=== PATIENT | male | born 1990 | race Caucasian/White ===

== ENCOUNTER 2016-08-11 18:41 | Emergency (ER) | payer OTHER ==
[2016-08-11] MEDS ORDERED: ONDANSETRON 4 MG/2 ML VIAL IVPB STA (18:50)
[2016-08-11] MEDS ORDERED: SODIUM CHLORIDE 1,000 ML IV ONE (18:50)
--- NOTE | 2016-08-11 18:50 | PDOC ---
History of Present Illness <Cecille Faria - Last Filed: 08/12/16 00:30> - History of Present Illness Initial Comments: 08/11/16 20:07 Patient is a 26 year old with significant medical hx of severe lumbar radiculopathy (epidural steroid injections for pain management) who is presenting to the ED after being found altered at home by family members today. The patient was found unresponsive at home and EMS was called. Upon arrival to the ED, the patient initially was unresponsive until he was placed in a bed and began wretching. The patient reporedly drank two 24 ounce beers today. Per family, the patient was complaining of abdominal pain and headache prior being found altered. Patient has a hx of oxycodone withdrawal for back pain in 2013. Social Hx: Current every day smoker. Alcohol use. PMD: Jun Deutsch MD <Pascale Pavon - Last Filed: 08/12/16 00:55> - General Stated Complaint: WITHDRAWAL Time Seen by Provider: 08/11/16 18:48 Past History - Past Medical History Anemia: No Asthma: No Cancer: No Cardiac Disorders: No CVA: No COPD: No CHF: No Dementia: No Diabetes: No GI Disorders: Yes (GERD (PAST HISTORY)) Disorders: No HTN: No Hypercholesterolemia: No Liver Disease: No Seizures: No Thyroid Disease: No - Surgical History Abdominal Surgery: No Appendectomy: No Cardiac Surgery: No Cholecystectomy: No Gastric Stapling: No GI Surgery: No Lung Surgery: No Neurologic Surgery: No Orthopedic Surgery: No - Immunization History Immunization Up to Date: Yes - Psycho/Social/Smoking Cessation Hx Anxiety: No Suicidal Ideation: No Smoking History: Former smoker Have you smoked in the past 12 months: No Number of Cigarettes Smoked Daily: 1 If you are a former smoker, when did you quit?: 3YRS AGO 'Breaking Loose' booklet given: 04/11/13 Hx Alcohol Use: Yes (SOCIALLY) Drug/Substance Use Hx: No Substance Use Type: None Hx Substance Use Treatment: No <Cecille Faria - Last Filed: 08/12/16 00:30> <Pascale Pavon - Last Filed: 08/12/16 00:55> - Past Medical History Allergies/Adverse Reactions: Allergies Allergy/AdvReac Type Severity Reaction Status Date / Time oxycodone HCl Allergy "chest Verified 08/11/16 19:03 [From OxyContin] pain" can't take it. Home Medications: Ambulatory Orders Oxycodone HCl [Roxicodone] 15 mg PO BID 08/11/16 Review of Systems - Review of Systems Comments:: 08/11/16 20:16 CONSTITUTIONAL: Absent: fever, chills, diaphoresis, generalized weakness, malaise, loss of appetite HEENT: Absent: rhinorrhea, nasal congestion, throat pain, throat swelling, difficulty swallowing, mouth swelling, ear pain, eye pain, visual changes CARDIOVASCULAR: Absent: chest pain, syncope, palpitations, irregular heart rate, lightheadedness , peripheral edema RESPIRATORY: Absent: cough, shortness of breath, dyspnea with exertion, orthopnea, wheezing, stridor, hemoptysis GASTROINTESTINAL: Present: abdominal pain, nausea, vomiting Absent: abdominal distension, diarrhea, constipation, melena, hematochezia GENITOURINARY: Absent: dysuria, frequency, urgency, hesitancy, hematuria, flank pain, genital pain MUSCULOSKELETAL: Absent: myalgia, arthralgia, joint swelling SKIN: Absent: rash, itching, pallor HEMATOLOGIC/IMMUNOLOGIC: Absent: easy bleeding, easy bruising, lymphadenopathy, frequent infections ENDOCRINE: Absent: unexplained weight gain, unexplained weight loss, heat intolerance, cold intolerance NEUROLOGIC: Present: headache Absent: focal weakness or paresthesia, dizziness, unsteady gait, seizure, mental status changes, bladder or bowel incontinence. PSYCHIATRIC: Absent: anxiety, depression, suicidal or homicidal ideation, hallucinations <Pascale Pavon - Last Filed: 08/12/16 00:55> *Physical Exam - Vital Signs Last Vital Signs Temp Pulse Resp BP Pulse Ox 97.8 F 96 H 22 141/94 100 08/11/16 18:52 08/11/16 18:52 08/11/16 18:52 08/11/16 18:52 08/11/16 18:52 - Physical Exam Comments: 08/12/16 00:49 GENERAL: Well developed, well nourished. Awake and alert. Patient in severe distress with vomiting upon arrival. Several hours later, upon second evaluation the patient conversant and is in no distress. HEENT: Normocephalic, atraumatic. PERRLA, EOMI. Injected conjunctivae. No conjunctival pallor. Sclera are non-icteric. Moist mucous membranes. Oropharynx is clear. NECK: Supple. Full ROM. No JVD. Carotid pulses 2+ and symmetric, without bruits. No thyromegaly. No lymphadenopathy. CARDIOVASCULAR: Regular rate and rhythm. No murmurs, rubs, or gallops. Distal pulses are 2+ and symmetric. PULMONARY: No evidence of respiratory distress. Lungs clear to auscultation bilaterally. No wheezing, rales or rhonchi. ABDOMINAL: Soft. Non-tender. Non-distended. No rebound or guarding. No organomegaly. Normoactive bowel sounds. MUSCULOSKELETAL: Normal range of motion at all joints. No bony deformities or tenderness. No CVA tenderness. EXTREMITIES: No cyanosis. No clubbing. No edema. No calf tenderness. SKIN: Warm and dry. Normal capillary refill. No rashes. No jaundice. NEUROLOGICAL: Alert, awake, appropriate, conversant. Ambulatory. Moving all extremities purposefully. Cranial nerves 2-12 intact. Normal speech. Toes are down-going bilaterally. Gait is normal without ataxia. <Pascale Pavon - Last Filed: 08/12/16 00:55> Heart Score/ECG Review #1 08/12/16 00:35 Normal sinus rhythm at 92 bpm Early repolarization Normal ECG <Pascale Pavon - Last Filed: 08/12/16 00:55> ED Treatment Course - LABORATORY CBC & Chemistry Diagram: 08/11/16 19:15 08/11/16 19:15 <Cecille Faria - Last Filed: 08/12/16 00:30> - LABORATORY CBC & Chemistry Diagram: 08/11/16 19:15 08/11/16 19:15 - ADDITIONAL ORDERS Additional order review: Laboratory Results 08/11/16 08/11/16 19:15 19:15 INR 1.10 Sodium 144 Potassium 4.7 Chloride 105 Carbon Dioxide 27 Anion Gap 12 BUN 4 L D Creatinine 1.2 Creat Clearance w eGFR > 60 Random Glucose 114 H D Calcium 8.5 Total Bilirubin 0.4 AST 37 ALT 92 H Alkaline Phosphatase 106 Creatine Kinase 286 Troponin I < 0.02 Total Protein 8.3 H Albumin 4.7 08/11/16 19:15 RBC 5.10 MCV 89.1 MCHC 33.8 RDW 12.9 MPV 9.4 Neutrophils % 65.8 Lymphocytes % 27.6 Monocytes % 5.8 Eosinophils % 0.5 Basophils % 0.3 - RADIOLOGY Radiograph Interpretation: 08/11/16 20:[address] Impression: No significant interval change or acute intracranial pathology is identified. Reported By: Adina Marquis MD 08/11/16 20:51 Chest X-Ray Impression: Unremarkable examination. Reported By: Adina Marquis MD - Medications Given in the ED: ED Medications Discontinued Medications Generic Name Dose Route Start Last Admin Trade Name Freq PRN Reason Stop Dose Admin Sodium Chloride 1,000 mls @ 1,000 mls/hr 08/11/16 18:50 08/11/16 19:21 Normal Saline - IV 08/11/16 19:49 1,000 mls/hr .Q1H ONE Administration Ondansetron HCl 4 mg 08/11/16 18:50 08/11/16 19:22 Zofran Injection IVPB 08/11/16 18:51 4 mg ONCE STA Administration Ondansetron HCl 8 mg 08/11/16 19:04 08/11/16 19:08 Zofran Odt - SL 08/11/16 19:05 8 mg ONCE ONE Administration <Pascale Pavon - Last Filed: 08/12/16 00:55> Medical Decision Making - Medical Decision Making 08/12/16 00:24 26-year-old male was brought in by ambulance after being found unresponsive at home. Family states he had been drinking earlier in the day. Past medical history-he sustained herniated disc while working at [employer] and is on disability CAT scan of the head was negative for any acute intracranial pathology Chemistries CBC is unremarkable Alcohol level was 224 Patient received IV fluids and is currently alert and conversant. 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 <Pascale Pavon - Last Filed: 08/12/16 00:55> Diagnosis at time of Disposition: Nausea and vomiting in adult Alcohol intoxication Qualifiers: Complication of substance-induced condition: uncomplicated Qualified Code(s): F10.920 - Alcohol use, unspecified with intoxication, uncomplicated - Discharge Dispostion Disposition: HOME Condition at time of disposition: Stable - Referrals Referrals: Jun Deutsch MD [Primary Care Provider] - - Patient Instructions Printed Discharge Instructions: DI for Alcoholic Gastritis, DI for Alcohol Abuse Additional Instructions: Please refrain from alcohol abuse
[2016-08-11] MEDS ORDERED: ONDANSETRON *ODT* 4 MG TABLET SL ONE (19:04)
[2016-08-11] MEDS ORDERED: ONDANSETRON *ODT* 4 MG TABLET ONE (19:06)
[2016-08-11 19:09] VITALS: TEMP 97.8; BMI 21.9
[2016-08-11] MEDS ORDERED: ONDANSETRON 4 MG/2 ML VIAL ONE (19:15)
[2016-08-11 19:35] LABS: BASOPHIL 0.3 % (0-2.0); EOSINOPHIL 0.5 % (0-4.5); MCH 30.1 pg (25.7-33.7); MCHC 33.8 g/dl (32.0-35.9); MEAN CELL VOLUME 89.1 fl (80-96); MEAN PLT VOLUME 9.4 fl (7.5-11.1); NEUTROPHILS 65.8 % (42.8-82.8); PLATELET COUNT 272 K/MM3 (134-434); RDW 12.9 % (11.9-15.9)
[2016-08-11 19:47] LABS: INR 1.1 (0.82-1.09); PROTHROMBIN TIME (PATIENT) 12.1 SEC (9.98-11.88)
[2016-08-11 19:58] LABS: ALBUMIN 4.7 g/dl (3.4-5.0); ANION GAP 12 (8-16); BILIRUBIN,TOTAL 0.4 mg/dL (0.2-1.0); CALCIUM 8.5 mg/dL (8.5-10.1); CO2 27 mmol/L (21-32); COCKROFT - GAULT 111.71; CREATININE 1.2 mg/dL (0.7-1.3); GLUCOSE,RANDOM 114 mg/dL (74-106); SGOT/AST 37 U/L (15-37); SGPT/ALT 92 U/L (12-78); TOT PROT 8.3 g/dl (6.4-8.2)
[2016-08-11 20:01] LABS: ALK PHOS 106 U/L (45-117); TROPONIN I < 0.02 ng/ml (0.00-0.05)
[2016-08-11] MEDS ORDERED: METOCLOPRAMIDE HCL INJECTION 10 MG/2 ML VIAL ONE (20:34)
[2016-08-11] MEDS ORDERED: METOCLOPRAMIDE HCL INJECTION 10 MG/2 ML VIAL IVPUSH ONE (20:38)
[2016-08-11] MEDS ORDERED: SODIUM CHLORIDE 1,000 ML IV STA (21:12)
[2016-08-11 23:13] LABS: URINE APPEARANCE CLEAR; URINE BILIRUBIN NEGATIVE (NEGATIVE); URINE BLOOD NEGATIVE (NEGATIVE); URINE COLOR STRAW; URINE GLUCOSE (UA) NEGATIVE (NEGATIVE); URINE KETONE NEGATIVE (NEGATIVE); URINE LEUK ESTERASE NEGATIVE (NEGATIVE); URINE NITRITE NEGATIVE (NEGATIVE); URINE PROTEIN NEGATIVE (NEGATIVE); URINE UROBILINOGEN NEGATIVE E.U./dl (0.2-1.0)
[2016-08-11 23:52] LABS: URINE MARIJUANA THC NEGATIVE ng/ml (CUTOFF=50)
[2016-08-12 00:29] VITALS: BP 107/80; PULSE 80
--- NOTE | 2016-08-12 11:05 | EKG ---
Test Reason : Blood Pressure : / mmHG Vent. Rate : 092 BPM Atrial Rate : 092 BPM P-R Int : 158 ms QRS Dur : 090 ms QT Int : 340 ms P-R-T Axes : 064 082 057 degrees QTc Int : 420 ms NORMAL SINUS RHYTHM EARLY REPOLARIZATION NORMAL ECG WHEN COMPARED WITH ECG OF 01-JUN-2015 01:11, NO SIGNIFICANT CHANGE WAS FOUND BASELINE ARTIFACT Confirmed by ADRIAN DONOVAN, WERO ([id number]) on 08/12/2016 11:05:05 AM Referred By: Confirmed By:WERO CAMPBELL MD
== END 2016-08-12 00:37 | disposition home or self-care (01) ==
LOC: JER 18:41 → SUPCPDRO 18:41 → JER 08-12 00:37
PROC: 3E0337Z Introduction of Electrolytic and Water Balance Substance into Peripheral Vein, Percutaneous Approach (ICD-10-PCS; principal; 2016-08-11)
PROC: 3E033GC Introduction of Other Therapeutic Substance into Peripheral Vein, Percutaneous Approach (ICD-10-PCS; 2016-08-11)
PROC: 3E033GC Introduction of Other Therapeutic Substance into Peripheral Vein, Percutaneous Approach (ICD-10-PCS; 2016-08-11)
PROC: 3E033GC Introduction of Other Therapeutic Substance into Peripheral Vein, Percutaneous Approach (ICD-10-PCS; 2016-08-11)
DX: F10.120 Alcohol abuse with intoxication, uncomplicated (principal); Y90.7 Blood alcohol level of 200-239 mg/100 ml
CPT/HCPCS: 36415; 70450-TC; 71010-TC; 80053; 80307; 81003; 82550; 82553; 84484; 85025; 85610; 93005; 93010; 96361; 96374; 96375; 99284-25

== ENCOUNTER 2019-01-13 23:24 | Emergency (ER) | payer SELFPAY ==
[2019-01-13 23:30] VITALS: BP 114/74; PULSE 102; TEMP 97.9; BMI 25.3
--- NOTE | 2019-01-14 00:57 | PDOC ---
History of Present Illness - General Chief Complaint: Cold Symptoms Stated Complaint: COUGH Time Seen by Provider: 01/14/19 00:41 History Source: Patient Exam Limitations: No Limitations - History of Present Illness Initial Comments: 01/14/19 00:51 Mr. Mancera is a 28 y/o M h/o migraine headache and chronic back pain He presents to the ER with complaints of productive cough, rhinorhea, and congestion x 1.5 week ago, improved and then recurred. He notes chest pain with coughing Pt denies any associated symptoms - fatigue, fever, chills, sinus pain, wheezing , hoarseness, sore throat, headache, ear pain, loss of smell. He did note an episode of nausea and vomiting today No diarrhea, no abdominal pain No recent travel (+) ill contact = co workers No dyspnea on exertion Pt unsure if he got an influenza shot No wheezing, no asthma or COPD ROS: GENERAL/CONSTITUTIONAL: No: fever, chills, weakness, loss of appetite. HEAD, EYES, EARS, NOSE AND THROAT: No: change in vision, ear pain, discharge, sore throat, throat swelling. CARDIOVASCULAR: No: chest pain, lightheadedness, palpitations, syncope RESPIRATORY: Yes: cough No: shortness of breath, wheezing GASTROINTESTINAL: Yes: one episode of vomiting No: diarrhea, abdominal pain GENITOURINARY: No: dysuria, hematuria, frequency, urgency, flank pain. MUSCULOSKELETAL: No: back pain, neck pain, joint pain, muscle swelling or pain SKIN: No: lesions, pallor, rash or easy bruising. NEUROLOGIC: No: headache, vertigo, paresthesias, weakness PE: Patient awake alert oriented x3 acting appropriately on exam in no acute distress Head NCAT Eyes: PERRLA, there is no conjunctiva injection. Ears: Auditory canals are clear, tympanic membrane bilaterally are robison with good reflex no effusion, no mastoid tenderness Nose: Turbinates pink without swelling discharge or erythema, discomfort over frontal and maxillary sinus Throat: Posterior pharynx pink, moist, no tonsillar enlargement, uvula is midline Neck: Supple, no cervical adenopathy, no nuchal rigidity Lungs: Clear to auscultation bilaterally, no wheezes rales or rhonchi appreciated Extremities: Patient actively moving all extremities without difficulty, no tenderness Neuro: Cranial nerves II - XII in tact, motor and sensory intact Skin: Clean warm and dry without rash 01/14/19 00:58 Is this a multiple visit Asthma Patient?: No Past History - Past Medical History Allergies/Adverse Reactions: Allergies Allergy/AdvReac Type Severity Reaction Status Date / Time oxycodone HCl Allergy "chest Verified 01/13/19 23:28 [From OxyContin] pain" can't take it. Home Medications: Ambulatory Orders Oxycodone HCl [Roxicodone] 15 mg PO BID 08/11/16 Albuterol Sulfate Inhaler - [Ventolin HFA Inhaler -] 1 - 2 inh PO QID PRN #1 inhaler 01/14/19 Azithromycin [Zithromax 250mg Tablets -] 250 mg PO UTDICT #6 tab 01/14/19 Benzonatate [Tessalon Pearls -] 100 mg PO TID PRN #21 capsule 01/14/19 Guaifenesin [Mucinex -] 600 mg PO BID #14 tablet.er 01/14/19 Anemia: No Asthma: No Cancer: No Cardiac Disorders: No CVA: No COPD: No CHF: No Dementia: No Diabetes: No GI Disorders: Yes (GERD (PAST HISTORY)) Disorders: No HTN: No Hypercholesterolemia: No Liver Disease: No Seizures: No Thyroid Disease: No - Surgical History Abdominal Surgery: No Appendectomy: No Cardiac Surgery: No Cholecystectomy: No Gastric Stapling: No GI Surgery: No Lung Surgery: No Neurologic Surgery: No Orthopedic Surgery: No - Immunization History Immunization Up to Date: Yes - Psycho Social/Smoking Cessation Hx Smoking History: Never smoked Have you smoked in the past 12 months: No Number of Cigarettes Smoked Daily: 1 If you are a former smoker, when did you quit?: 3YRS AGO Information on smoking cessation initiated: No 'Breaking Loose' booklet given: 04/11/13 Hx Alcohol Use: No Drug/Substance Use Hx: No Substance Use Type: None Hx Substance Use Treatment: No *Physical Exam - Vital Signs Last Vital Signs Temp Pulse Resp BP Pulse Ox 97.9 F 102 H 20 114/74 99 01/13/19 23:28 01/13/19 23:28 01/13/19 23:28 01/13/19 23:28 01/13/19 23:28 ED Treatment Course - RADIOLOGY Radiology Studies Ordered: Category Date Time Status CHEST PA & LAT [RAD] Stat Radiology 01/14/19 00:46 Ordered Medical Decision Making - Medical Decision Making 01/14/19 00:57 28 yo M presenting with a complaint of cough for 1.5 weeks Based on the patients o2 saturation, physical exam, being afebrile I find it unlikely that they have pneumonia CXR reviewed, no obvious infiltrate seen Based on the results I believe the patient is most likely suffering from an upper respiratory infection. I've instructed the patient to rest, remain hydrated and to take over the counter analgesics/antipyretics for pain or fever as instructed on the package. I've told the patient that if they develop any new or worsening symptoms to present straight to the ER and to follow up with their primary care provider in 24-48 hours. I've explained the above diagnosis and plan to the patient of which they expressed understanding and are in agreement. 01/14/19 00:58 01/14/19 01:15 Discharge - Discharge Information Problems reviewed: Yes Clinical Impression/Diagnosis: Upper respiratory infection Qualifiers: URI type: unspecified URI Qualified Code(s): J06.9 - Acute upper respiratory infection, unspecified Condition: Stable Disposition: HOME - Admission No - Additional Discharge Information Prescription Drug Monitoring Program (I-STOP) results: I-STOP not reviewed - Follow up/Referral Referrals: Jun Deutsch MD [Primary Care Provider] - - Patient Discharge Instructions Patient Printed Discharge Instructions: DI for Common Cold, DI for Acute Bronchitis Additional Instructions: Mr. Mancera Thank you for coming in to the ER today Today you were seen for an upper respiratory infection. Take the antibiotic zithromax as directed. You may use Flonase or over the counter decongestants as needed for nasal congestion. You may take tessalon perles as needed for cough during the day. Follow up with your primary care provider within 24 to 48 hours. Please return to the emergency room if any new or worsening symptoms develop. - Post Discharge Activity Work/Back to School Note: Back to Work
== END 2019-01-14 01:35 | disposition home or self-care (01) ==
LOC: JER 23:24
DX: J06.9 Acute upper respiratory infection, unspecified (principal); M54.89 Other dorsalgia; G89.29 Other chronic pain; Z87.19 Personal history of other diseases of the digestive system; Z88.5 Allergy status to narcotic agent; Z86.69 Personal history of other diseases of the nervous system and sense organs
CPT/HCPCS: 71046-TC-FY; 99281-25

== ENCOUNTER 2019-05-14 21:24 | Emergency (ER) | payer OTHER ==
[2019-05-14 21:36] VITALS: TEMP 98.2; BMI 25.8
--- NOTE | 2019-05-14 22:03 | PDOC ---
History of Present Illness - General Chief Complaint: Nausea/Vomiting Stated Complaint: VOMITTING Time Seen by Provider: 05/14/19 22:02 History Source: Patient Exam Limitations: No Limitations - History of Present Illness Initial Comments: 05/14/19 22:02 Asa Mancera is a 29M with PMH migraines and herniated lumbar discs presenting with nausea and vomiting. Asymptomatic earlier today, ate some mozzarella sticks, fried plantains, one beer, and shot glass of coquito, had sudden onset nausea, vomiting, epigastric pain, and diarrhea that has been persistent throughout the night, ~15x, now in ED for further evaluation. Partner at bedside ate some plantains and is not sick. Patient denies abdominal surgeries, gallbladder disease, pain after meals prior to today, or chronic alcohol use, only drinks a few drinks on the weekend. Denies tobacco/drug use. Has history of migraines, did not have JENSEN prior to vomiting, but does have JENSEN and dizziness after vomiting for a few hours. Denies chest pain, SOB, vision changes, weakness, urinary sx. Past History - Past Medical History Allergies/Adverse Reactions: Allergies Allergy/AdvReac Type Severity Reaction Status Date / Time oxycodone HCl Allergy "chest Verified 01/13/19 23:28 [From OxyContin] pain" can't take it. Home Medications: Ambulatory Orders Oxycodone HCl [Roxicodone] 15 mg PO BID 08/11/16 Albuterol Sulfate Inhaler - [Ventolin HFA Inhaler -] 1 - 2 inh PO QID PRN #1 inhaler 01/14/19 Azithromycin [Zithromax 250mg Tablets -] 250 mg PO UTDICT #6 tab 01/14/19 Benzonatate [Tessalon Pearls -] 100 mg PO TID PRN #21 capsule 01/14/19 Guaifenesin [Mucinex -] 600 mg PO BID #14 tablet.er 01/14/19 Anemia: No Asthma: No Cancer: No Cardiac Disorders: No CVA: No COPD: No CHF: No Dementia: No Diabetes: No GI Disorders: Yes (GERD (PAST HISTORY)) Disorders: No HTN: No Hypercholesterolemia: No Liver Disease: No Seizures: No Thyroid Disease: No - Surgical History Abdominal Surgery: No Appendectomy: No Cardiac Surgery: No Cholecystectomy: No Gastric Stapling: No GI Surgery: No Lung Surgery: No Neurologic Surgery: No Orthopedic Surgery: No - Immunization History Immunization Up to Date: Yes - Psycho Social/Smoking Cessation Hx Smoking History: Never smoked Have you smoked in the past 12 months: No Number of Cigarettes Smoked Daily: 1 If you are a former smoker, when did you quit?: 3YRS AGO 'Breaking Loose' booklet given: 04/11/13 Hx Alcohol Use: No Drug/Substance Use Hx: No Substance Use Type: None Hx Substance Use Treatment: No Review of Systems - Review of Systems Able to Perform ROS?: Yes Constitutional: Yes: Chills. No: Fever HEENTM: Yes: Throat Pain. No: Blurred Vision, Double Vision, Dental Problems, Difficulty Swallowing Respiratory: No: Cough, Shortness of Breath, Wheezing Cardiac (ROS): Yes: Lightheadedness. No: Chest Pain, Edema, Irregular Heart Rate, Palpitations, Syncope, Chest Tightness ABD/GI: Yes: Diarrhea, Nausea, Poor Appetite, Poor Fluid Intake, Vomiting, Other (abdominal pain). No: Constipated : No: Burning, Dysuria, Discharge, Frequency, Flank Pain, Hematuria, Incontinence Musculoskeletal: No: Joint Swelling, Muscle Pain, Muscle Weakness Integumentary: No: Symptoms Reported Neurological: Yes: Headache. No: Numbness, Paresthesia, Tingling, Weakness, Unsteady Gait, Ataxia, Dizziness Endocrine: No: Symptoms Reported Hematologic/Lymphatic: No: Symptoms Reported All Other Systems: Reviewed and Negative *Physical Exam - Vital Signs Last Vital Signs Temp Pulse Resp BP Pulse Ox 98.2 F 129 H 19 111/75 100 05/14/19 21:30 05/14/19 21:30 05/14/19 21:30 05/14/19 21:30 05/14/19 21:30 - Physical Exam General Appearance: Yes: Nourished, Appropriately Dressed, Moderate Distress HEENT: positive: EOMI, ANASTASIIA. negative: Scleral Icterus (R), Scleral Icterus (L) Neck: positive: Trachea midline, Normal Thyroid, Supple. negative: Tender, Rigid, Lymphadenopathy (R), Lymphadenopathy (L), Tender lateral, Tender midline Respiratory/Chest: positive: Lungs Clear, Normal Breath Sounds. negative: Chest Tender, Respiratory Distress, Crackles, Rales, Rhonchi, Wheezing Cardiovascular: positive: Regular Rhythm, Regular Rate. negative: Murmur Gastrointestinal/Abdominal: positive: Normal Bowel Sounds, Tender (epigastric, negative Rowan), Flat, Soft. negative: Organomegaly, Pulsatile Mass, Distended , Guarding, Rebound Musculoskeletal: positive: Normal Inspection. negative: CVA Tenderness, Decreased Range of Motion, Vertebral Tenderness Extremity: positive: Normal Capillary Refill, Normal Inspection, Normal Range of Motion, Pelvis Stable. negative: Tender, Pedal Edema, Swelling, Calf Tenderness Integumentary: positive: Normal Color, Dry, Warm Neurologic: positive: Fully Oriented, Alert, Normal Mood/Affect, Normal Response , Motor Strength 5/5, Other (shaking/tremors to hands/feet). negative: Numbness , Sensory Deficit ED Treatment Course - LABORATORY CBC & Chemistry Diagram: 05/14/19 22:35 05/14/19 22:35 Medical Decision Making - Medical Decision Making 05/14/19 22:44 Patient presents with acute onset nausea and vomiting with diarrhea and epigastric pain. Presentation consistent with gastroenteritis given acuity and symptoms, but also concerning for GB disease, pancreatitis, gastritis. No other PMH or PSH, no prior pain like this makes GB disease or gastritis less likely. VS show tachycardia consistent with volume depletion. Also having JENSEN with N/V. - CBC/CMP for eval lytes and WBC elevation - lipase for eval pancreatitis - CT AP for eval pancreatitis - CT head for eval JENSEN with N/V - 1L NS for tachycardia, dehydration - Pepcid and Reglan for epigastric pain with JENSEN - GB US for eval GB pathology 05/14/19 22:59 Labs notable for: - WBC 13.6, elevated - CMP WNL - Lipase 136, not consistent with pancreatitis Patient interviewed without in room, drinks much more alcohol than previously admitted. Re-evaluated, epigastric pain improved, no more N/V. JENSEN resolved. Still needs CT for evaluation of pancreatitis/gastritis. 05/15/19 01:30 GB US shows borderline hepatomegaly without GB wall thickening, stones, or CBD dilation. 05/15/19 02:[address] Muñoz with night team. Plan pending CT read, re-eval abdomen. If no concerning findings, discharge home with gastroenteritis precautions and PMD f/u, consider giving Zofran script as needed. Discharge - Discharge Information Problems reviewed: Yes Clinical Impression/Diagnosis: Epigastric abdominal pain Nausea & vomiting Qualifiers: Vomiting type: unspecified Vomiting Intractability: non-intractable Qualified Code(s): R11.2 - Nausea with vomiting, unspecified Diarrhea Qualifiers: Diarrhea type: unspecified type Qualified Code(s): R19.7 - Diarrhea, unspecified Condition: Stable - Follow up/Referral Referrals: Jun Deutsch MD [Primary Care Provider] - - Patient Discharge Instructions Patient Printed Discharge Instructions: DI for Gastritis Additional Instructions: Today you were evaluated for abdominal pain, nausea, vomiting, and diarrhea. Your blood labs do not show any infection or pancreatitis. Your ultrasound does not show any gallbladder disease. Your CT scan does not show any evidence of pancreatitis or other life-threatening illness that needs treatment. Your pain is being caused by irritation of your stomach lining, called gastritis, or food poisoning. At home, eat bland foods such as soups or bread, and avoid alcohol or fatty foods and eating too late at night. Please see your primary doctor in the next 3 days for further care. If you experience worsening vomiting, diarrhea , fever, worse abdominal pain, or any other new or concerning symptoms, please return to the emergency room. - Post Discharge Activity
[2019-05-14] MEDS ORDERED: SODIUM CHLORIDE 0.9% 500 ML INFUS.BAG IV ONE (22:17)
[2019-05-14] MEDS ORDERED: FAMOTIDINE 20 MG/50 ML IVPB 20 MG/50 ML MG IVPB ONE ×2 (22:17→22:33)
[2019-05-14] MEDS ORDERED: ONDANSETRON 4 MG/2 ML VIAL IVPUSH ONE (22:17)
[2019-05-14] MEDS ORDERED: METOCLOPRAMIDE HCL INJECTION 10 MG/2 ML VIAL IVPB ONE (22:28)
[2019-05-14] MEDS ORDERED: ACETAMINOPHEN 1000 MG/100 ML VIAL (NON FORMULARY) IVPB ONE (22:28)
[2019-05-14] MEDS ORDERED: METOCLOPRAMIDE HCL INJECTION 10 MG/2 ML VIAL ONE (22:32)
[2019-05-14] MEDS ORDERED: ACETAMINOPHEN INJECTION 100 ML IVPB ONE (22:33)
[2019-05-14 22:46] LABS: BASO % 0.3 % (0-2.0); EOS % 0.3 % (0-4.5); HEMATOCRIT 49.1 % (35.4-49); HEMOGLOBIN 16.6 GM/dL (11.7-16.9); LYMPH % 2.9 % (8-40); MCH 31.4 pg (25.7-33.7); MCHC 33.9 g/dl (32.0-35.9); MEAN CELL VOLUME 92.7 fl (80-96); MEAN PLT VOLUME 9.8 fl (7.5-11.1); MONO % 3.2 % (3.8-10.2); NEUT % 93.3 % (42.8-82.8); PLATELET COUNT 238 K/MM3 (134-434); RBC 5.29 M/mm3 (4.00-5.60); RDW 12.8 % (11.9-15.9); WHITE BLOOD COUNT 13.6 K/mm3 (4.0-10.0)
[2019-05-14 23:15] LABS: ALBUMIN 4.9 g/dl (3.4-5.0); BLOOD UREA NITROGEN 11.9 mg/dL (7-18); CALCIUM 9.9 mg/dL (8.5-10.1); CREATININE 1.4 mg/dL (0.55-1.3); POTASSIUM 4.7 mmol/L (3.5-5.1); TOT PROT 8.7 g/dl (6.4-8.2)
[2019-05-14 23:17] LABS: PLATELET ESTIMATE ADEQUATE
--- NOTE | 2019-05-14 23:50 | PDOC ---
Documentation entered by Tomasa Mccloud SCRIBE, acting as scribe for Padmini Wesley DO. Padmini Wesley DO: This documentation has been prepared by the ingrid, Tomasa Mccloud SCRIBE, under my direction and personally reviewed by me in its entirety. I confirm that the documentation accurately reflects all work, treatment, procedures, and medical decision making performed by me. Attending Attestation - Resident Resident Name: Ian Jackson - ED Attending Attestation I have performed the following: I have examined & evaluated the patient, The case was reviewed & discussed with the resident, I agree w/resident's findings & plan - HPI HPI: 05/14/19 22:53 The patient is a 29 year old male with a significant PMH of migraines and herniated lumbar discs who presents to the emergency department for sudden onset epigastric pain, nausea, vomiting and diarrhea. Pt reports 15 episodes of emesis. The patient denies chest pain, shortness of breath, headache and dizziness. Denies fever, chills, cough, and constipation. Denies dysuria, frequency, urgency and hematuria. Allergies: oxycodone HCL - Physicial Exam PE: 05/14/19 22:54 Agree with resident exam. - Medical Decision Making 05/14/19 23:49 29-year-old male with acute onset of nausea vomiting diarrhea Patient is tender over the epigastric area and bilateral upper quadrants Negative Rowan sign Patient also complaining of mild headache after vomiting Plan for CT scan of the head as well as abdomen pelvis IV fluids, antiemetics Plan for reevaluation post imaging, if tolerating p.o. will DC
--- NOTE | 2019-05-15 03:13 | PDOC ---
*Physical Exam - Vital Signs Last Vital Signs Temp Pulse Resp BP Pulse Ox 98.2 F 129 H 19 111/75 100 05/14/19 21:30 05/14/19 21:30 05/14/19 21:30 05/14/19 21:30 05/14/19 21:30 ED Treatment Course - LABORATORY CBC & Chemistry Diagram: 05/14/19 22:35 05/14/19 22:35 - ADDITIONAL ORDERS Additional order review: Laboratory Results 05/14/19 05/14/19 22:35 22:35 Sodium 138 Potassium 4.7 Chloride 101 Carbon Dioxide 27 Anion Gap 11 BUN 11.9 Creatinine 1.4 H Est GFR (CKD-EPI)AfAm 77.04 Est GFR (CKD-EPI)NonAf 66.47 Random Glucose 118 H Calcium 9.9 Total Bilirubin 1.0 AST 55 H ALT 91 H Alkaline Phosphatase 122 H Total Protein 8.7 H Albumin 4.9 Lipase 155 05/14/19 22:35 RBC 5.29 MCV 92.7 MCHC 33.9 RDW 12.8 MPV 9.8 Neutrophils % 93.3 H D Lymphocytes % 2.9 L D Monocytes % 3.2 L Eosinophils % 0.3 Basophils % 0.3 - Medications Given in the ED: ED Medications Discontinued Medications Generic Name Dose Route Start Last Admin Trade Name Freq PRN Reason Stop Dose Admin Acetaminophen 1,000 mg 05/14/19 22:28 05/14/19 22:45 Ofirmev Injection - IVPB 05/14/19 22:29 1,000 mg ONCE ONE Administration Famotidine/Sodium Chloride 20 mg in 50 mls @ 100 mls/hr 05/14/19 22:17 22:45 Pepcid 20 Mg Premixed Ivpb - IVPB 05/14/19 22:46 100 mls/hr ONCE ONE Administration Metoclopramide HCl 10 mg 05/14/19 22:28 05/14/19 22:45 Reglan Injection - IVPB 05/14/19 22:29 10 mg ONCE ONE Administration Ondansetron HCl 4 mg 05/14/19 22:17 05/15/19 00:27 Zofran Injection IVPUSH 05/14/19 22:18 Not Given ONCE ONE Sodium Chloride 1,000 ml 05/14/19 22:17 05/14/19 22:45 Normal Saline - IV 05/14/19 22:18 1,000 ml ONCE ONE Administration Medical Decision Making - Medical Decision Making Patient signed out by Dr. Jackson 29M with PMH migraines and herniated lumbar discs presenting with nausea and vomiting. Pending CT reports Patient feeling better after receiving medications 05/15/19 03:12 US: "FINDINGS: Right upper quadrant ultrasound:The liver is borderline enlarged 17.8 cm, without mass or biliary duct dilation. The gallbladder is normal. The CBD is not dilated and measures6 millimeters in diameter. Right kidney measures 12.1centimeters in length and is unremarkable. The visualized aorta and IVC are normal. Pancreas is partially obscured, but appears normal. Abdominal duplex: There is normal hepatopedal flow in the main portal vein. IMPRESSION: Borderline hepatomegaly." CT Head: "COMPARISON: None. FINDINGS: The ventricular system is midline and nondilated. The sulcal pattern is normal for the patient's age. There is no bleed, mass, extra-axial fluid collection or mass effect. No skull fracture or skull lesion is identified. The mastoid air cells are clear. There is mucosal thickening in the bilateral maxillary sinuses and a right maxillary sinus retention cyst or polyp. IMPRESSION: No acute intracranial pathology. Bilateral maxillary sinus disease, possibly sinusitis." Pending CTAP 05/15/19 03:28 CTAP: "COMPARISON: None. FINDINGS: Lung bases are clear. The visualized cardiac chambers are normal size and configuration. Normal liver, gallbladder, pancreas, spleen, adrenal glands and kidneys. The stomach and small bowel are normal. There is diffuse liquids without colonic wall thickening which may indicate a diarrheal illness. There is no aortic aneurysm. There is no significant retroperitoneal lymphadenopathy. The appendix is normal. The urinary bladder and prostate gland are normal. No pelvic free fluid is identified. There is no significant pelvic lymphadenopathy.IMPRESSION: Possible diarrheal illness without colonic wall thickening" 05/15/19 03:57 Patient refused banana bag Feeling better Able to tolerate po Zofran prescription Return precautions Stable for discharge 05/15/19 06:30 Discharge - Discharge Information Problems reviewed: Yes Clinical Impression/Diagnosis: Epigastric abdominal pain Nausea & vomiting Qualifiers: Vomiting type: unspecified Vomiting Intractability: non-intractable Qualified Code(s): R11.2 - Nausea with vomiting, unspecified Diarrhea Qualifiers: Diarrhea type: unspecified type Qualified Code(s): R19.7 - Diarrhea, unspecified Condition: Stable Disposition: HOME - Additional Discharge Information Prescriptions: Ondansetron [Zofran Odt -] 4 mg SL TID #15 od.tablet - Follow up/Referral Referrals: Jun Deutsch MD [Primary Care Provider] - - Patient Discharge Instructions Patient Printed Discharge Instructions: DI for Gastritis Additional Instructions: Today you were evaluated for abdominal pain, nausea, vomiting, and diarrhea. Your blood labs do not show any infection or pancreatitis. Your ultrasound does not show any gallbladder disease. Your CT scan does not show any evidence of pancreatitis or other life-threatening illness that needs treatment. Your pain is being caused by irritation of your stomach lining, called gastritis, or food poisoning. At home, eat bland foods such as soups or bread, and avoid alcohol or fatty foods and eating too late at night. Please see your primary doctor in the next 3 days for further care. If you experience worsening vomiting, diarrhea , fever, worse abdominal pain, or any other new or concerning symptoms, please return to the emergency room. - Post Discharge Activity Work/Back to School Note: Back to Work
--- NOTE | 2019-05-15 04:09 | PDOC ---
*Physical Exam - Vital Signs Last Vital Signs Temp Pulse Resp BP Pulse Ox 98.2 F 129 H 19 111/75 100 05/14/19 21:30 05/14/19 21:30 05/14/19 21:30 05/14/19 21:30 05/14/19 21:30 ED Treatment Course - LABORATORY CBC & Chemistry Diagram: 05/14/19 22:35 05/14/19 22:35 - ADDITIONAL ORDERS Additional order review: Laboratory Results 05/14/19 05/14/19 22:35 22:35 Sodium 138 Potassium 4.7 Chloride 101 Carbon Dioxide 27 Anion Gap 11 BUN 11.9 Creatinine 1.4 H Est GFR (CKD-EPI)AfAm 77.04 Est GFR (CKD-EPI)NonAf 66.47 Random Glucose 118 H Calcium 9.9 Total Bilirubin 1.0 AST 55 H ALT 91 H Alkaline Phosphatase 122 H Total Protein 8.7 H Albumin 4.9 Lipase 155 05/14/19 22:35 RBC 5.29 MCV 92.7 MCHC 33.9 RDW 12.8 MPV 9.8 Neutrophils % 93.3 H D Lymphocytes % 2.9 L D Monocytes % 3.2 L Eosinophils % 0.3 Basophils % 0.3 - Medications Given in the ED: ED Medications Discontinued Medications Generic Name Dose Route Start Last Admin Trade Name Freq PRN Reason Stop Dose Admin Acetaminophen 1,000 mg 05/14/19 22:28 05/14/19 22:45 Ofirmev Injection - IVPB 05/14/19 22:29 1,000 mg ONCE ONE Administration Famotidine/Sodium Chloride 20 mg in 50 mls @ 100 mls/hr 05/14/19 22:17 22:45 Pepcid 20 Mg Premixed Ivpb - IVPB 05/14/19 22:46 100 mls/hr ONCE ONE Administration Metoclopramide HCl 10 mg 05/14/19 22:28 05/14/19 22:45 Reglan Injection - IVPB 05/14/19 22:29 10 mg ONCE ONE Administration Ondansetron HCl 4 mg 05/14/19 22:17 05/15/19 00:27 Zofran Injection IVPUSH 05/14/19 22:18 Not Given ONCE ONE Sodium Chloride 1,000 ml 05/14/19 22:17 05/14/19 22:45 Normal Saline - IV 05/14/19 22:18 1,000 ml ONCE ONE Administration Medical Decision Making - Medical Decision Making 05/15/19 04:09 Patient Name: RADHA REED THIS IS A PRELIMINARY REPORT FROM [facility] DATE OF SERVICE: 2019-05-15 01:40:42 IMAGES: [id number] EXAM: ABDOMEN \T\ PELVIS CT WITH CONTR HISTORY: Rule out pancreatitis COMPARISON: None. FINDINGS: Lung bases are clear. The visualized cardiac chambers are normal size and configuration. Normal liver, gallbladder, pancreas, spleen, adrenal glands and kidneys. The stomach and small bowel are normal. There is diffuse liquids without colonic wall thickening which may indicate a diarrheal illness. There is no aortic aneurysm. There is no significant retroperitoneal lymphadenopathy. The appendix is normal. The urinary bladder and prostate gland are normal. No pelvic free fluid is identified. There is no significant pelvic lymphadenopathy. IMPRESSION: Possible diarrheal illness without colonic wall thickening 05/15/19 06:36 HR is 107bpm; he is refusing banana bag; she wants to go home and continue drinking and hydrating. Pt is able to tolerate PO and he feels vastly improved. Pt denies alcohol consumption being a problem. However he did drink coquito and beer yesterday. Discharge - Discharge Information Problems reviewed: Yes Clinical Impression/Diagnosis: Epigastric abdominal pain Nausea & vomiting Qualifiers: Vomiting type: unspecified Vomiting Intractability: non-intractable Qualified Code(s): R11.2 - Nausea with vomiting, unspecified Diarrhea Qualifiers: Diarrhea type: unspecified type Qualified Code(s): R19.7 - Diarrhea, unspecified Condition: Stable Disposition: HOME - Additional Discharge Information Prescriptions: Ondansetron [Zofran Odt -] 4 mg SL TID #15 od.tablet - Follow up/Referral Referrals: Jun Deutsch MD [Primary Care Provider] - - Patient Discharge Instructions Patient Printed Discharge Instructions: DI for Gastritis Additional Instructions: Today you were evaluated for abdominal pain, nausea, vomiting, and diarrhea. Your blood labs do not show any infection or pancreatitis. Your ultrasound does not show any gallbladder disease. Your CT scan does not show any evidence of pancreatitis or other life-threatening illness that needs treatment. Your pain is being caused by irritation of your stomach lining, called gastritis, or food poisoning. At home, eat bland foods such as soups or bread, and avoid alcohol or fatty foods and eating too late at night. Please see your primary doctor in the next 3 days for further care. If you experience worsening vomiting, diarrhea , fever, worse abdominal pain, or any other new or concerning symptoms, please return to the emergency room. - Post Discharge Activity Work/Back to School Note: Back to Work
[2019-05-15] MEDS ORDERED: SODIUM CHLORIDE 1,000 ML IV STA (04:10)
[2019-05-15] MEDS ORDERED: ONDANSETRON *ODT* 4 MG TABLET ONE (04:34)
[2019-05-15] MEDS ORDERED: ONDANSETRON *ODT* 4 MG TABLET SL ONE (04:35)
[2019-05-15] MEDS ORDERED: FOLIC ACID INJECTION - 1 MG, THIAMINE HCL 100 MG, MULTIVIT INJECTION ADULT 10 ML in SOD... IVPB ONE (05:45)
[2019-05-15 06:31] VITALS: BP 124/73; PULSE 107
== END 2019-05-15 06:50 | disposition home or self-care (01) ==
LOC: JER 21:24 → SUPCPDRO 21:24 → JER 05-15 06:50
PROC: 3E0337Z Introduction of Electrolytic and Water Balance Substance into Peripheral Vein, Percutaneous Approach (ICD-10-PCS; principal; 2019-05-14)
PROC: 3E033GC Introduction of Other Therapeutic Substance into Peripheral Vein, Percutaneous Approach (ICD-10-PCS; 2019-05-14)
PROC: 3E033NZ Introduction of Analgesics, Hypnotics, Sedatives into Peripheral Vein, Percutaneous Approach (ICD-10-PCS; 2019-05-14)
DX: K29.70 Gastritis, unspecified, without bleeding (principal); G43.909 Migraine, unspecified, not intractable, without status migrainosus; Z87.891 Personal history of nicotine dependence
CPT/HCPCS: 36415; 70450-TC; 74177-TC; 76705-TC; 80053; 83690; 85025; 99282-25; J0131; J7030; Q0162

== ENCOUNTER 2020-09-25 07:13 | Emergency (ER) | payer OTHER ==
[2020-09-25 07:27] VITALS: BP 136/82; PULSE 85; TEMP 98.1; BMI 25.8
[2020-09-25] MEDS ORDERED: METOCLOPRAMIDE HCL INJECTION 10 MG/2 ML VIAL IVPUSH ONE (07:55)
[2020-09-25] MEDS ORDERED: SODIUM CHLORIDE 0.9% 500 ML INFUS.BAG IV ONE (07:55)
[2020-09-25] MEDS ORDERED: ACETAMINOPHEN 1000 MG/100 ML VIAL (NON FORMULARY) IVPB ONE (07:56)
[2020-09-25] MEDS ORDERED: ACETAMINOPHEN INJECTION 100 ML IVPB ONE (08:08)
[2020-09-25] MEDS ORDERED: METOCLOPRAMIDE HCL INJECTION 10 MG/2 ML VIAL ONE (08:08)
[2020-09-25 08:58] LABS: BASO % 0.2 % (0-2.0); EOS % 1.4 % (0-4.5); HEMATOCRIT 42.6 % (35.4-49); HEMOGLOBIN 14.5 GM/dL (11.7-16.9); LYMPH % 22.2 % (8-40); MCH 31.4 pg (25.7-33.7); MEAN CELL VOLUME 92.4 fl (80-96); MEAN PLT VOLUME 9.4 fl (7.5-11.1); MONO % 5.6 % (3.8-10.2); NEUT % 70.6 % (42.8-82.8); PLATELET COUNT 186 10^3/uL (134-434); RBC 4.61 M/mm3 (4.00-5.60); WHITE BLOOD COUNT 7.2 K/mm3 (4.0-10.0)
[2020-09-25 09:05] LABS: PH,URINE 6.5 (5.0-8.0); URINE APPEARANCE CLEAR; URINE BILIRUBIN NEGATIVE (NEGATIVE); URINE COLOR YELLOW; URINE GLUCOSE (UA) NEGATIVE (NEGATIVE); URINE KETONE NEGATIVE (NEGATIVE); URINE LEUK ESTERASE NEGATIVE (NEGATIVE); URINE NITRITE NEGATIVE (NEGATIVE); URINE PROTEIN NEGATIVE (NEGATIVE); URINE UROBILINOGEN 0.2 mg/dL (0.2-1.0)
[2020-09-25 09:15] LABS: ALBUMIN 4.2 g/dl (3.4-5.0); BLOOD UREA NITROGEN 10.2 mg/dL (7-18)
[2020-09-25 09:20] LABS: BILIRUBIN,TOTAL 0.7 mg/dL (0.2-1); TOT PROT 7.6 g/dl (6.4-8.2)
[2020-09-26 08:06] LABS: SARS-CoV-2 NAA Not Detected (Not Detected)
== END 2020-09-25 10:53 | disposition home or self-care (01) ==
LOC: JER 07:13
PROC: 3E0333Z Introduction of Anti-inflammatory into Peripheral Vein, Percutaneous Approach (ICD-10-PCS; principal; 2020-09-25)
PROC: 3E033GC Introduction of Other Therapeutic Substance into Peripheral Vein, Percutaneous Approach (ICD-10-PCS; 2020-09-25)
DX: R53.83 Other fatigue (principal); Z11.52 Encounter for screening for COVID-19
CPT/HCPCS: 36415; 71046-TC-FY; 80053; 81003; 85025; 87086; 99284-25; C9803; J0131; U0003; U0005

== ENCOUNTER 2022-03-10 06:55 | Emergency (ER) | payer OTHER ==
[2022-03-10 07:09] VITALS: BP 147/81; RESP 18; TEMP 98.2; BMI 26.7
[2022-03-10] MEDS ORDERED: FAMOTIDINE 20 MG TABLET PO ONE (07:21)
[2022-03-10] MEDS ORDERED: MAG HYDROX/AL HYDROX/SIMETH -MYLANTA- ORAL SUSPENSION PO ONE (07:21)
[2022-03-10] MEDS ORDERED: FAMOTIDINE 20 MG TABLET ONE (07:34)
[2022-03-10] MEDS ORDERED: MAG HYDROX/AL HYDROX/SIMETH 30 ML UNIT-DOSE CUP ONE (07:34)
[2022-03-10 08:27] LABS: HEMATOCRIT 42.3 % (35.4-49); HEMOGLOBIN 14.6 G/dL (11.7-16.9); MCH 32.4 pg (25.7-33.7); MCHC 34.4 g/dl (32.0-35.9); MEAN CELL VOLUME 94.2 fl (80-96); MEAN PLT VOLUME 8.8 fl (7.5-11.1); PLATELET COUNT 170.5 10^3/uL (134-434); RBC 4.49 10^6/uL (4.00-5.60); RDW 13.1 % (11.9-15.9); WHITE BLOOD COUNT 6.2 10^3/uL (4.0-10.8)
[2022-03-10 08:46] LABS: BILIRUBIN,TOTAL 1.4 mg/dl (0.2-1); CALCIUM 8.2 mg/dl (8.5-10); CREATININE 0.9 mg/dl (0.55-1.3)
[2022-03-10] MEDS ORDERED: ONDANSETRON *ODT* 4 MG TABLET SL ONE (08:51)
[2022-03-10] MEDS ORDERED: ONDANSETRON *ODT* 4 MG TABLET ONE (08:55)
[2022-03-10 11:02] VITALS: PULSE 95
== END 2022-03-10 11:06 | disposition home or self-care (01) ==
LOC: FER 06:55
DX: R10.13 Epigastric pain (principal); E87.1 Hypo-osmolality and hyponatremia; B34.9 Viral infection, unspecified
CPT/HCPCS: 0241U-QW; 36415; 80053; 83690; 85027; 93005; 99284-25; Q0162

== ENCOUNTER 2022-06-27 22:18 | Emergency (ER) | payer OTHER ==
[2022-06-27 22:22] VITALS: BMI 26.1
[2022-06-27] MEDS ORDERED: KETOROLAC TROMETHAMINE 15 MG/ML VIAL IVPUSH ONE (22:59)
[2022-06-27 23:27] LABS: BASO % 0.3 % (0-2.0); EOS % 1.1 % (0-4.5); HEMATOCRIT 41.7 % (35.4-49); HEMOGLOBIN 14.6 GM/dL (11.7-16.9); LYMPH % 18.9 % (8-40); MCHC 34.9 g/dl (32.0-35.9); MEAN CELL VOLUME 91.7 fl (80-96); MEAN PLT VOLUME 8.7 fl (7.5-11.1); MONO % 7.5 % (3.8-10.2); NEUT % 72.2 % (42.8-82.8); PLATELET COUNT 218 10^3/uL (134-434); RBC 4.55 M/mm3 (4.00-5.60); RDW 12.3 % (11.9-15.9); WHITE BLOOD COUNT 7.2 K/mm3 (4.0-10.0)
[2022-06-27] MEDS ORDERED: KETOROLAC TROMETHAMINE 15 MG/ML VIAL ONE (23:38)
[2022-06-27 23:51] LABS: ALBUMIN 4.1 g/dl (3.4-5.0); BLOOD UREA NITROGEN 9.2 mg/dL (7-18); CALCIUM 9.7 mg/dL (8.5-10.1); MAGNESIUM 1.9 mg/dL (1.8-2.4)
[2022-06-27 23:56] LABS: BILIRUBIN,TOTAL 0.6 mg/dL (0.2-1); TOT PROT 7.5 g/dl (6.4-8.2)
[2022-06-27 23:57] LABS: INR 1.01 (0.83-1.09); PROTHROMBIN TIME (PATIENT) 11.7 SEC (9.7-13.0)
[2022-06-27 23:59] LABS: ACTIVATED PTT 29.9 SECONDS (25.2-36.5)
[2022-06-28 01:20] VITALS: BP 117/72; PULSE 72; RESP 16; TEMP 97.8
[2022-06-28] MEDS ORDERED: ACETAMINOPHEN 500 MG TABLET (FP) PO ONE (01:39)
[2022-06-28] MEDS ORDERED: METHOCARBAMOL 500 MG TABLET PO ONE (01:39)
[2022-06-28] MEDS ORDERED: METHOCARBAMOL 500 MG TABLET ONE (01:52)
[2022-06-28] MEDS ORDERED: ACETAMINOPHEN 325 MG TABLET (FP) ONE (01:52)
== END 2022-06-28 02:47 | disposition home or self-care (01) ==
LOC: JER 22:18
PROC: 3E033GC Introduction of Other Therapeutic Substance into Peripheral Vein, Percutaneous Approach (ICD-10-PCS; principal; 2022-06-27)
DX: R07.9 Chest pain, unspecified (principal)
CPT/HCPCS: 0241U-QW; 36415; 71045-TC-FY; 80053; 83735; 84484; 85025; 85610; 85730; 86850; 86900; 86901; 93005; 93010; 99285-25

== ENCOUNTER 2023-06-29 05:06 | Day surgery (SDC) | payer OTHER ==
[2023-06-10 09:44] VITALS: BMI 26.7
[2023-06-29] MEDS ORDERED: LIDOCAINE HCL 1%, 10 MG/ML (20ML VIAL) ONE (07:17)
[2023-06-29] MEDS ORDERED: BUPIVACAINE HCL/PF 0.5% (5MG/ML) 10 ML VIAL ONE (07:17)
[2023-06-29] MEDS ORDERED: FENTANYL CITRATE/PF 50 MCG/ML VIAL ONE ×4 (07:27→09:11)
[2023-06-29] MEDS ORDERED: LIDOCAINE HCL/PF 2% SDV 5ML VIAL ONE (07:27)
[2023-06-29] MEDS ORDERED: PROPOFOL 20 ML ONE ×2 (07:27→07:58)
[2023-06-29] MEDS ORDERED: MIDAZOLAM HCL 2 MG/2 ML SINGLE DOSE VIAL ONE (07:27)
[2023-06-29] MEDS ORDERED: ceFAZolin SODIUM 1 GM VIAL ONE (07:52)
[2023-06-29] MEDS ORDERED: DEXAMETHASONE SOD PHOSPHATE 4 MG/1 ML VIAL ONE (07:52)
[2023-06-29] MEDS: ceFAZolin SODIUM 1 GM VIAL IVPB ONE (07:55)
[2023-06-29] MEDS: LIDOCAINE HCL 1%, 10 MG/ML (20ML VIAL) INF ONE (08:02)
[2023-06-29] MEDS: BUPIVACAINE HCL/PF 0.5% (5MG/ML) 10 ML VIAL IJ ONE (08:02)
[2023-06-29] MEDS ORDERED: ONDANSETRON 4 MG/2 ML VIAL ONE (08:09)
[2023-06-29] MEDS ORDERED: KETOROLAC TROMETHAMINE 30 MG/1 ML VIAL ONE (08:09)
[2023-06-29] MEDS ORDERED: oxyCODONE HCL 5 MG TABLET PO PRN (08:33)
[2023-06-29] MEDS ORDERED: ONDANSETRON 4 MG/2 ML VIAL IVPUSH PRN (08:33)
[2023-06-29] MEDS ORDERED: PROMETHAZINE HCL 25 MG/1 ML VIAL IVPB PRN (08:33)
[2023-06-29] MEDS ORDERED: LACTATED RINGERS SOLUTION 1,000 ML IV SCH (08:45)
[2023-06-29] MEDS ORDERED: ACETAMINOPHEN INJECTION 100 ML IVPB ONE (08:59)
[2023-06-29] MEDS: ACETAMINOPHEN 1000 MG/100 ML BAG IVPB ONE ×2 (09:02→09:58)
[2023-06-29 10:05] VITALS: RESP 18
[2023-06-29] MEDS ORDERED: oxyCODONE HCL 5 MG TABLET ONE (10:17)
[2023-06-29] MEDS: oxyCODONE HCL 5 MG TABLET PO PRN (10:18)
[2023-06-29 11:45] VITALS: BP 133/74; PULSE 87; TEMP 98.7
== END 2023-06-29 11:40 | disposition home or self-care (01) ==
LOC: JASU-SURG 05:06
PROVIDERS: ATTEND Urology
PROC: 0VTQ0ZZ Resection of Bilateral Vas Deferens, Open Approach (ICD-10-PCS; principal; 2023-06-29 09:00)
DX: Z30.2 Encounter for sterilization (principal)
CPT/HCPCS: 88302-TC; 94760; J0131